=== PATIENT | female | born 1950 | race Caucasian/White ===

== ENCOUNTER 2017-11-01 05:02 | Observation (INO) | payer MEDICARE, OTHER ==
[~2017-11-01] VITALS: Ht 163.8 cm; Wt 109.3 kg
[2017-11-01] VITALS (12 sets, daily range): BP systolic 142–164; BP diastolic 68–106
[~2017-11-01 05:02] MED LIST: AMOX-559 PO; APIX5TAB PO; ARNICA MONTANA PO; ARNICA PO; ASPI-1471 PO; ATOR40TA69 PO; CETI-176 PO; CHOL200074 PO; CIPR-214 PO; DOXY-1 PO; FAMO20TA28 PO; FERR240T23 PO; FLUC150T40 PO; FLUC200T56 PO; FOLI-68 PO; HYDR-4308 PO; LEVO250T41 PO; LOSA100T67 PO; LOSA25TA50 PO; METH2.5T43 PO; METO25TA93 PO; MULT-1176 PO; MULT1TAB67 PO; SPIR25TA78 PO
[2017-11-01] MEDS ORDERED: FAMOTIDINE 20 MG TAB PO ONE (09:45)
[2017-11-01] MEDS ORDERED: LIDOCAINE/SOD BICARB 8.4% SYR ID ONE (09:45)
[2017-11-01] MEDS ORDERED: ceFAZolin(*) 2GM/D5W 50ML 50 ML IVPB ONE (09:45)
[2017-11-01] MEDS ORDERED: NORMOSOL R SOLN(*) 1000 ML BAG 1,000 ML IV PRN (09:45)
[2017-11-01] MEDS ORDERED: MIDAZOLAM 2 MG/2 ML VIAL IVP PRN (09:45)
--- NOTE | 2017-11-01 11:25 | RADIOLOGY IMAGING REPORT ---
FACILITY: [facility] PATIENT NAME: Rebeka Stevenson : 1950 MR: [id number] V: [id number] EXAM DATE: ORDERING PHYSICIAN: ALE HUSTON TECHNOLOGIST: Location[place] [facility] [place] Patient: Rebeka Stevenson : 1950 Visit/Account:[id number] Date of Sevice: 10/30/2017 Exam type: KUB SINGLE VIEW ABDOMEN History: PRE OP ORDER Comparison: October 10, 2017. Findings: There are bilateral ureteral stents in place. No definite calcifications identified over the renal s hadows or along the course of the stents. The superior border of the right renal shadow are not incl uded on the image. Bowel gas pattern is nonspecific. IMPRESSION: 1. Bilateral ureteral stents. No definite calcifications project over the renal shadows although the renal shadows are predominatel y obscured by bowel gas Report Dictated By: Mia Navarrete MD at 11/01/2017 11:13 AM Report E-Signed By: Mia Navarrete MD at 11/01/2017 11:14 AM WSN:[email or web address]
--- NOTE | 2017-11-01 11:26 | RADIOLOGY IMAGING REPORT ---
FACILITY: [facility] - [place] PATIENT NAME: Rebeka Stevenson : 1950 MR: [id number] V: [id number] EXAM DATE: ORDERING PHYSICIAN: ALE HUSTON TECHNOLOGIST: Location: [facility] - [place] Patient: Rebeka Stevenson : 1950 Visit/Account:[id number] Date of Sevice: 10/30/2017 Exam type: TOMOGRAPHY History: Kidney stones Comparison: October 10, 2017. Findings: Numerous calcifications project over the mid and inferior aspect of the right renal shadow. Calcific ations actually appears slightly more prominent when compared to the prior study. No calcifications seen over the left renal shadow. There are bilateral ureteral stents IMPRESSION: Multiple Calcifications project over the mid and inferior pole of the right renal shadow. These cons ultations appears more prominent when compared to the prior study Bilateral ureteral stents Report Dictated By: Mia Navarrete MD at 11/01/2017 11:14 AM Report E-Signed By: Mia Navarrete MD at 11/01/2017 11:16 AM WSN:[email or web address]
[2017-11-01] MEDS ORDERED: IOPAMIDOL-200 50 ML VIAL IS ONE ×2 (12:16→12:36)
[2017-11-01] MEDS ORDERED: DEXAMETHASONE SOD PHOS 10MG/ML ONE (12:17)
[2017-11-01] MEDS ORDERED: PROPOFOL EMUL(*) 10MG/ML 20 ML 20 ML ONE ×2 (12:17→13:00)
[2017-11-01] MEDS ORDERED: LIDOCAINE MPF 1% 5 ML VIAL ONE (12:17)
[2017-11-01] MEDS ORDERED: ONDANSETRON 4 MG/2 ML VIAL ONE (12:17)
[2017-11-01] MEDS ORDERED: fentaNYL CITR 100 MCG/2 ML AMP ONE (12:44)
--- NOTE | 2017-11-01 13:49 | RADIOLOGY IMAGING REPORT ---
FACILITY: [facility] - [place], [place] PATIENT NAME: Rebeka Stevenson : 1950 MR: [id number] V: [id number] EXAM DATE: ORDERING PHYSICIAN: ALE HUSTON TECHNOLOGIST: Location: [facility] - [place] Patient: Rebeka Stevenson : 1950 Visit/Account:[id number] Date of Sevice: 11/01/2017 Exam type: C-ARM FLUORO 1 HR History: HEMATURIA Comparison: September 24, 2017. Findings: There are bilateral double pigtail ureteral stents that appear to been repositioned when compared the prior study. Bowel gas pattern is nonspecific. Two intraoperative spot views of the abdomen pelvis were submitted. The fluoroscopy time was not documented. IMPRESSION: 1. As above Report Dictated By: Mia Navarrete MD at 11/01/2017 1:41 PM Report E-Signed By: Mia Navarrete MD at 11/01/2017 1:43 PM WSN:[email or web address]
[2017-11-01] MEDS ORDERED: ZOLPIDEM TARTRATE 5 MG TAB PO PRN (15:40)
[2017-11-01] MEDS ORDERED: LR(*) 1000 ML BAG 1,000 ML IV PRN (15:40)
[2017-11-01] MEDS ORDERED: NALOXONE HCL 0.4 MG/ML VIAL IVP PRN (15:40)
[2017-11-01] MEDS ORDERED: FLUSH 10 ML SYR IVP PRN (15:40)
[2017-11-01] MEDS ORDERED: HYDROmorphone PCA 6 MG/30 ML IV PRN (15:40)
[2017-11-01] MEDS ORDERED: ONDANSETRON 4 MG/2 ML VIAL IVP PRN (15:40)
[2017-11-01] MEDS: FAMOTIDINE 20 MG TAB PO SCH (20:17)
[2017-11-01] MEDS: DOCUSATE SODIUM 100 MG CAP PO SCH (20:17)
[2017-11-02] MEDS: GENTAMICIN/NS 80 MG/100 ML PB 100 ML IVPB SCH ×2 (01:13→12:25)
[2017-11-02 03:01] VITALS: BP 125/61
[2017-11-02 07:56] VITALS: BP 127/62
[2017-11-02 08:41] VITALS: Ht 163.8 cm; Wt 109.3 kg
[2017-11-02] MEDS: FAMOTIDINE 20 MG TAB PO SCH (09:20)
[2017-11-02] MEDS: DOCUSATE SODIUM 100 MG CAP PO SCH (09:20)
[2017-11-02 11:01] VITALS: BP 121/58
[2017-11-02] MEDS ORDERED: CIPR-344 PO (12:52)
--- NOTE | 2017-11-02 15:05 | OPERATIVE REPORT 1 ---
DATE OF EVENT: November 01, 2017 SURGEON: Gonzalo Henry MD ANESTHESIOLOGIST: Yani Sánchez MD ANESTHESIA: General. PREOPERATIVE DIAGNOSES 1. Bilateral renal lithiasis. 2. Possible bilateral ureteral steinstrasse. POSTOPERATIVE DIAGNOSES 1. Bilateral renal lithiasis. 2. Bilateral ureteral stent steinstrasse. PROCEDURES PERFORMED 1. Cystourethroscopy. 2. Bilateral ureteral stent removal. 3. Extraction of multiple calculi from the bladder, vesicolitholapaxy. 4. Right ureteral renoscopy and removal of stones 5. Left ureteral renoscopy and removal of stones 6. Right extracorporeal shock wave lithotripsy of one stone. 7. Left extracorporeal shock wave lithotripsy of two calculi. 8. Bilateral external stent removal. 9. Replacement of indwelling right ureteral stent. DESCRIPTION OF PROCEDURE Under general anesthetic, the patient was prepped and draped in the extended lithotomy position. The 21 panendoscope was admitted through the urethra into the bladder. Urine was obtained for culture and sensitivity. The stents were removed. Three to four calculi were treated with vesicolitholapaxy from the bladder after stent removal. Right ureterorenoscopy showed a fairly large right steinstrasse measuring approximately 2-1/2 inches. The calculi were extracted. The left ureterorenoscopy was performed, and there was a small steinstrasse of possibly 3/4 of an inch on the left that was extracted. Ascending and descending ureteroscopy revealed no other calculi. The external stents were placed 6 portuguese whistle-tip. They were secured to a Brasher drainage system, and contrast was attached. The patient was transferred to the stone treatment unit. The patient was positioned for right extracorporeal shock wave lithotripsy. Fluoroscopy failed to definitely show any calculi in the kidney. Contrast was introduced, and there was a large calculus that filled the renal pelvis almost completely and the upper pole collecting system. The stone was treated as one stone. A total of 3500 shocks were administered to the stone, and the stone appeared to satisfactorily disintegrate as evidenced by contrast media spreading through the disintegrated calculi at the conclusion of the procedure. The patient was repositioned for left extracorporeal shock wave lithotripsy. Three calculi were localized in the upper collecting system and were treated with a total of 1500 shocks utilizing contrast media again. The calculi in the inferior pole area were treated again with a total of 1500 shocks, all progressing from low to high kV fairly rapidly. The external stents were removed at the conclusion of the procedure. The patient was reprepped and draped in the frogleg position. The 21 panendoscope was admitted through the urethra into the bladder. The access catheter was placed up the right collecting system. The guidewire was placed. X-ray confirmed satisfactory positioning. The 6-Ugandan x 26 cm Percuflex Plus passed up the left collecting without any difficulty. X-ray confirmed a full curl in the kidney and the bladder. The bladder was irrigated free of blood, and urine was drained as fluids were drained. The patient tolerated the procedure satisfactorily and returned to the recovery room in satisfactory condition. This is a 67-year-old white female in followup for bilateral staghorn calculi. She has had two previous treatments. The plain films showed probable residual lithiasis in the right kidney, renal pelvis area. I could not definitely say I could see any on the left. Options were discussed as to evaluation and possible therapy. I explained possible ureteral steinstrasses and need for treatment and extraction as well as possible repeat extracorporeal shock wave lithotripsies. She was evaluated and treated. See operative note for details. The patient will be ready for discharge home in the a.m. if all is going well. She is to force fluids, 12 glasses of water per day. Activities are as tolerated. She is to percuss both kidneys frequently to facilitate passage of stone particles and will continue the Cipro, Pepcid, and Vicodin therapy as needed in addition to her usual medications. MTDD
== END 2017-11-02 12:39 | disposition home or self-care (01) ==
LOC: OR 05:02 → MED 16:08
DX: N20.0 Calculus of kidney (principal)
CPT/HCPCS: 50590; 52315; 74000; 76000; 76100; 87077; 87088; 87186; A9270; G0378; J1100; J1170; J1580; J2001; J2405; J2704; J3010; J7120; Q9966; J0690

== ENCOUNTER → 2017-11-20 | Outpatient (CLI) | payer MEDICARE, OTHER ==
[2017-11-02 08:41] VITALS: BMI 40.7
[~2017-11-20] MED LIST changes: +CIPR-344 PO
--- NOTE | 2017-11-20 12:55 | RADIOLOGY IMAGING REPORT ---
FACILITY: [facility] - [place] PATIENT NAME: Rebeka Stevenson : 1950 MR: [id number] V: [id number] EXAM DATE: ORDERING PHYSICIAN: ALE HUSTON TECHNOLOGIST: Location: [facility] - [place] Patient: Rebeka Stevenson : 1950 Visit/Account:[id number] Date of Sevice: 11/20/2017 Tomography: HISTORY: Nephroureteral lithiasis. COMPARISON: 09/01/2017 FINDINGS: 3 tomographic images are archived to PACS. No definite calcifications are seen projecting over the kidneys. Right nephroureteral stent is in place. Since the prior study, left nephrouretera l stent has been removed. IMPRESSION: No definite renal calculi seen on tomographic images. Report Dictated By: Hilda Flanagan MD at 11/20/2017 12:34 PM Report E-Signed By: Hilda Flanagan MD at 11/20/2017 12:51 PM WSN:[email or web address]
--- NOTE | 2017-11-20 12:57 | RADIOLOGY IMAGING REPORT ---
FACILITY: [facility] PATIENT NAME: Rebeka Stevenson : 1950 MR: [id number] V: [id number] EXAM DATE: ORDERING PHYSICIAN: ALE HUSTON TECHNOLOGIST: Location: [facility] [place] Patient: Rebeka Stevenson : 1950 Visit/Account:[id number] Date of Sevice: 11/20/2017 Abdomen single view: HISTORY: Nephroureteral lithiasis. COMPARISON: 11/01/2017 FINDINGS: Since prior study, left nephroureteral stent has been removed, right remains in place. No definite renal calculi are seen. No ureteral calculi are visualized. Rounded calcification in the l eft side of pelvis is outside the ureter and likely phleboliths. Bowel gas pattern is nonspecific. IMPRESSION: 1. No plain radiographic evidence of renal or ureteral calculi. 2. Interval removal of a left nephroureteral stent, right remains in place. Report Dictated By: Hilda Flanagan MD at 11/20/2017 12:51 PM Report E-Signed By: Hilda Flanagan MD at 11/20/2017 12:52 PM WSN:[email or web address]
== END ==
LOC: RAD 10:05
DX: N28.89 Other specified disorders of kidney and ureter (principal)
CPT/HCPCS: 74018; 76100

== ENCOUNTER → 2017-11-21 | Outpatient (CLI) | payer MEDICARE, OTHER ==
[2017-11-02 08:41] VITALS: BMI 40.7
== END ==
LOC: SPU 07:44
DX: N30.21 Other chronic cystitis with hematuria (principal)
CPT/HCPCS: 81001; 87088

== ENCOUNTER → 2017-11-21 | Outpatient (CLI) | payer MEDICARE, OTHER ==
[2017-11-02 08:41] VITALS: BMI 40.7
--- NOTE | 2017-11-21 11:40 | RADIOLOGY IMAGING REPORT ---
FACILITY: [facility] - [place] PATIENT NAME: Rebeka Stevenson : 1950 MR: [id number] V: [id number] EXAM DATE: ORDERING PHYSICIAN: ALE HUSTON TECHNOLOGIST: [place] [facility] [place] Patient: Rebeka Stevenson : 1950 Visit/Account:[id number] Date of Sevice: 11/21/2017 ABDOMEN/PELVIS W/O CONTRAST HISTORY: Nephro ureterolithiasis TECHNIQUE: Axial images acquired through the abdomen/pelvis. Coronal and sagittal reformatting also performed. No IV contrast administered. Dose Lowering Technique One of the following dose optimization techniques was utilized in the performance of this exam: Autom ated exposure control; adjustment of the mA and/or kV according to the patient's size; or use of an i terative reconstruction technique. Specific details can be referenced in the facility's radiology C T exam operational policy. COMPARISON: August 28, 2017 FINDINGS: Visualized lung bases: Small amount linear scarring in the left lower lobe and inferior right middle lobe Hepatobiliary: Hepatic cysts remain unchanged Spleen: Negative. Adrenals: Negative. Pancreas: Negative. Kidneys ureters and bladder: There Is a right ureteral stent in place. There is very mild fullness o f the right renal pelvis there are several calcifications remaining in the right renal collecting sys tem is a 2 mm calcification in the medial inferior pole and partial staghorn calculus in the lower po le though has overall decreased in size when compared to the prior study. No definite calculi seen a long the course of the right ureteral stent there has been a marked reduction in the size and number of calculi in the left renal collecting system. At least three calcifications remain in the lower po le of the left kidney ranging in size from 1 mm to 6 mm. The bladder is partially decompressed there fore not ideally evaluated Genitalia: Uterus is not seen GI: Mild diverticulosis of the sigmoid colon although no CT evidence of acute diverticulitis. The a ppendix appears mildly prominent at 8 mm although no surrounding inflammatory change identified in th e right lower quadrant. . Small hiatal hernia Vessels/spaces/nodes: Multiple shotty retroperitoneal lymph nodes again seen similar to the prior ex amination Bones/soft tissues: Spondylotic changes of the thoracolumbar spine. Additional findings: None pertinent. IMPRESSION: There is been a marked reduction of the number of nonobstructing calculi seen in both renal collectin g systems. Is a right ureteral stent in place with no definite calculi seen along the course of the stent. Ther e is very mild fullness of the right renal pelvis. Mild linear scarring in the lung bases Hepatic cysts unchanged Mild diverticulosis of the sigmoid colon although no CT evidence of acute diverticulitis Small hiatal hernia The appendix appears mildly prominent at 8 mm in diameter although no surrounding inflammatory change s identified in the right lower quadrant Report Dictated By: Mia Navarrete MD at 11/21/2017 11:25 AM Report E-Signed By: Mia Navarrete MD at 11/21/2017 11:35 AM JOSEN:[email or web address]
== END ==
LOC: CT 09:35
DX: N20.2 Calculus of kidney with calculus of ureter (principal); R91.8 Other nonspecific abnormal finding of lung field; K76.89 Other specified diseases of liver

== ENCOUNTER 2017-12-10 00:26 | Day surgery (SDC) | payer MEDICARE, OTHER ==
[2017-11-02 08:41] VITALS: Ht 163.8 cm; Wt 109.3 kg
[~2017-12-10] VITALS: Ht 163.8 cm; Wt 109.3 kg
[~2017-12-10 00:26] MED LIST changes: +FOLI0.4T56 PO
[2017-12-10] MEDS ORDERED: LIDOCAINE 2% IV 100 MG/5ML SYR ONE (08:02)
[2017-12-10] MEDS ORDERED: fentaNYL CITR 100 MCG/2 ML AMP ONE (08:02)
[2017-12-10] MEDS ORDERED: PROPOFOL EMUL(*) 10MG/ML 20 ML 0 ML ONE (08:03)
[2017-12-10] MEDS ORDERED: ONDANSETRON 4 MG/2 ML VIAL ONE (08:23)
[2017-12-10 08:33] LABS: INR 0.99
[2017-12-10] MEDS ORDERED: NORMOSOL R SOLN(*) 1000 ML BAG 1,000 ML IV PRN (08:50)
[2017-12-10] MEDS ORDERED: ceFAZolin(*) 2GM/D5W 50ML 50 ML IVPB ONE (08:50)
[2017-12-10] MEDS ORDERED: FAMOTIDINE 20 MG TAB PO ONE (08:50)
[2017-12-10] MEDS ORDERED: LIDOCAINE/SOD BICARB 8.4% SYR ID ONE (08:50)
[2017-12-10] MEDS ORDERED: MIDAZOLAM 2 MG/2 ML VIAL IVP ONE (08:50)
== END 2017-12-10 18:00 | disposition home or self-care (01) ==
LOC: OR 00:26
DX: Z02.9 Encounter for administrative examinations, unspecified (principal); Z86.718 Personal history of other venous thrombosis and embolism; Z79.01 Long term (current) use of anticoagulants
CPT/HCPCS: 36415; 85610; J2001; J2405; J2704; J3010

== ENCOUNTER 2017-12-13 00:29 | Observation (INO) | payer MEDICARE, OTHER ==
[~2017-12-13] VITALS: Ht 162.6 cm; Wt 107.0 kg
[2017-12-13] VITALS (18 sets, daily range): BP systolic 118–176; BP diastolic 60–108
[2017-12-13] MEDS ORDERED: LIDOCAINE/SOD BICARB 8.4% SYR ID ONE (10:00)
[2017-12-13] MEDS ORDERED: ceFAZolin(*) 2GM/D5W 50ML 50 ML IVPB ONE (10:00)
[2017-12-13] MEDS ORDERED: FAMOTIDINE 20 MG TAB PO ONE (10:00)
[2017-12-13] MEDS ORDERED: NORMOSOL R SOLN(*) 1000 ML BAG 1,000 ML IV PRN (10:00)
[2017-12-13] MEDS ORDERED: MIDAZOLAM 2 MG/2 ML VIAL IVP ONE (10:00)
[2017-12-13] MEDS ORDERED: fentaNYL CITR 100 MCG/2 ML AMP ONE ×2 (10:07→12:00)
[2017-12-13] MEDS ORDERED: LIDOCAINE MPF 1% 5 ML VIAL ONE ×2 (10:08→10:35)
[2017-12-13] MEDS ORDERED: ONDANSETRON 4 MG/2 ML VIAL ONE (10:08)
[2017-12-13] MEDS ORDERED: PROPOFOL EMUL(*) 10MG/ML 20 ML 20 ML ONE ×2 (10:08→11:08)
[2017-12-13] MEDS ORDERED: DEXAMETHASONE SOD PHOS 10MG/ML ONE (10:08)
--- NOTE | 2017-12-13 11:18 | RADIOLOGY IMAGING REPORT ---
[place] [facility] [place]: Rebeka Stevenson : 1950 MR: [id number] V: [id number] EXAM DATE: ORDERING PHYSICIAN: ALE HUSTON TECHNOLOGIST: Location: [facility] - [place] Patient: Rebeka Stevenson : 1950 Visit/Account:[id number] Date of Sevice: 12/13/2017 Exam type: TOMOGRAPHY History: Bilateral kidney stones Comparison: CT abdomen pelvis November 21, 2016. Findings: Right ureteral stent again seen is a 3 mm calcification projects over the lower pole of the right kid sabrina. No definite calcination seen along the course of the stent. No calcifications identified proje cting over the left renal shadow IMPRESSION: 1. Right ureteral stent The 3 mm calcination projects over the lower pole the right kidney Report Dictated By: Mia Navarrete MD at 12/13/2017 11:12 AM Report E-Signed By: Mia Navarrete MD at 12/13/2017 11:14 AM WSN:[email or web address]
--- NOTE | 2017-12-13 11:20 | RADIOLOGY IMAGING REPORT ---
FACILITY: [facility] PATIENT NAME: Rebeka Stevenson : 1950 MR: [id number] V: [id number] EXAM DATE: ORDERING PHYSICIAN: ALE HUSTON TECHNOLOGIST: Location: [facility] Patient: Rebeka Stevenson : 1950 Visit/Account:[id number] Date of Sevice: 12/13/2017 Exam type: KUB SINGLE VIEW ABDOMEN History: preop order Comparison: CT abdomen and pelvis November 21, 2017. Findings: Is a right ureteral stent in place. Calcination projecting over the lower pole the right kidney was better seen on today's nephrotomograms. No definite calcification seen along the course of the right stent. Suggestion of a small 3 mm calcination projecting over the lower pole the left kidney not we ll seen on today's nephrotomograms. Bowel gas pattern is nonspecific IMPRESSION: 1. Right ureteral stent Ossification projects over the lower pole the right kidney was better seen on today's nephrotomograms . Suggestion of a 3 mm calcification projecting over the lower pole of the left kidney not well apprec iated on today's nephrotomograms. Report Dictated By: Mia Navarrete MD at 12/13/2017 11:14 AM Report E-Signed By: Mia Navarrete MD at 12/13/2017 11:15 AM WSN:[email or web address]
[2017-12-13] MEDS ORDERED: IOPAMIDOL-200 50 ML VIAL IS ONE ×2 (11:34→12:26)
[2017-12-13] MEDS ORDERED: FLUSH 10 ML SYR IVP PRN (12:45)
[2017-12-13] MEDS ORDERED: ONDANSETRON 4 MG/2 ML VIAL IVP PRN (12:45)
[2017-12-13] MEDS ORDERED: LR(*) 1000 ML BAG 1,000 ML IV PRN (12:45)
[2017-12-13] MEDS ORDERED: ZOLPIDEM TARTRATE 5 MG TAB PO PRN (12:45)
[2017-12-13] MEDS ORDERED: NALOXONE HCL 0.4 MG/ML VIAL IVP PRN (12:50)
[2017-12-13] MEDS ORDERED: HYDROmorphone PCA 6 MG/30 ML IV PRN (12:50)
[2017-12-13] MEDS ORDERED: GENTAMICIN/NS 80 MG/100 ML PB 100 ML IVPB SCH (13:00)
[2017-12-13] MEDS ORDERED: DIPH-618 PO (14:24)
[2017-12-13] MEDS ORDERED: FLUCONAZOLE 150 MG TAB PO ONE (15:40)
--- NOTE | 2017-12-13 19:50 | OPERATIVE REPORT 1 ---
EVENT DATE: December 10, 2017 SURGEON: Gonzalo Henry MD ANESTHESIOLOGIST: Matthew Mclain MD ANESTHESIA: General anesthetic. PREOPERATIVE DIAGNOSES 1. Bilateral renal lithiases. 2. Right ureteral stent. POSTOPERATIVE DIAGNOSES 1. Bilateral renal lithiases. 2. Right ureteral stent. PROCEDURES PERFORMED 1. Cystourethroscopy. 2. Right ureteral stent removal. 3. Bilateral external stent placement. 4. Bilateral extracorporeal shock wave lithotripsy. One stone was treated in the right kidney, and one stone was treated in the left kidney. 5. Bilateral external stent removal. 6. Bilateral internal stent placement. DESCRIPTION OF PROCEDURE Under general anesthetic, the patient was prepped and draped in the extended lithotomy position. A 21 panendoscope was admitted through the urethra into the bladder. The right ureteral stent was visualized and removed. Her bladder was normal. There were a few small calculi at the right ureteral orifice. The external stents were placed up each collecting system. Contrast media was attached to the external stents. After localization, the visualized stone in the right kidney were treated with a total of 3000 shocks. Contrast showed appropriate treatment in the area of stone involvement. The left renal calculi were treated in a like fashion. Again, a total of 3000 shocks were administered progressive from low to high kV fairly slowly. Again, contrast showed treatment in the areas of stone involvement. The external stents were removed. The access catheter was placed and then the guide wire on the right. The 6-Norwegian x 26 cm Percuflex Plus was passed up the right collecting system. The left indwelling ureteral stent was placed in a like fashion. X-ray confirmed a full curl in the kidneys. Visualization showed full curls in the bladder cystoscopically. The bladder was irrigated free of blood. The patient tolerated the procedure satisfactorily and returned to the recovery room in satisfactory condition. This is a 67-year-old white female who was complaining about bilateral staghorn calculi. She has had multiple treatments. It is my clinical impression and hope that this will be her final shock wave lithotripsy. We plan followup in approximately two weeks for residual calculi. If no stones are visualized, then the stents will be removed. The patient will be discharged home on her usual medications in addition to the continued Cipro, Pepcid, Motrin, and Demerol tablet therapy. She is to percuss both kidneys frequently to facilitate passage of the stone particles. Stones collected will be sent for stone analysis. As previously alluded to, I believe, we have planned followup in approximately two weeks with KUB and possible CT IVP without contrast. MTDD
[2017-12-13] MEDS: FAMOTIDINE 20 MG TAB PO SCH (21:18)
[2017-12-13] MEDS: DOCUSATE SODIUM 100 MG CAP PO SCH (21:18)
[2017-12-13] MEDS: NYSTATIN 100,000 U/GM PWD 15GM TP SCH (21:19)
[2017-12-13] MEDS: GENTAMICIN/NS 80 MG/100 ML PB 100 ML IVPB SCH (21:19)
[2017-12-14 03:12] VITALS: BP 143/71
[2017-12-14] MEDS ORDERED: MEPE100T3 PO (07:06)
[2017-12-14] MEDS ORDERED: FAMO20TA28 PO (07:08)
[2017-12-14] MEDS ORDERED: CIPR-214 PO (07:08)
[2017-12-14 08:24] VITALS: Ht 162.6 cm; Wt 107.0 kg
[2017-12-14] MEDS: DOCUSATE SODIUM 100 MG CAP PO SCH (09:10)
[2017-12-14] MEDS: FAMOTIDINE 20 MG TAB PO SCH (09:10)
[2017-12-14 09:24] VITALS: BP 131/69
[2017-12-14] MEDS: NYSTATIN 100,000 U/GM PWD 15GM TP SCH (09:24)
[2017-12-14] MEDS: GENTAMICIN/NS 80 MG/100 ML PB 100 ML IVPB SCH (10:07)
== END 2017-12-14 07:09 | disposition home or self-care (01) ==
LOC: OR 00:29 → MED 14:10 → INTOOBSV 14:10
DX: N20.0 Calculus of kidney (principal)
CPT/HCPCS: 50590; 52332; 74018; 76100; 87077; 87088; 87186; A9270; C1758; C1769; C1894; C2617; G0378; J1100; J1580; J2001; J2405; J2704; J3010; J7120; Q9966; J0690

== ENCOUNTER → 2017-12-19 | Outpatient (CLI) | payer MEDICARE, OTHER ==
[2017-12-14 08:24] VITALS: BMI 40.5
[~2017-12-19] MED LIST changes: +DIPH-618 PO; +MEPE100T3 PO
[2017-12-19 10:43] LABS: PLATELET COUNT, AUTOMATED 323 K/uL (150-450)
== END ==
LOC: LAB 10:02
PROVIDERS: ATTEND Internal Medicine Nephrology
DX: N18.3 Chronic kidney disease, stage 3 (moderate) (principal); R80.1 Persistent proteinuria, unspecified; N20.0 Calculus of kidney; R31.0 Gross hematuria
CPT/HCPCS: 82040; 82310; 82374; 82435; 82565; 82947; 84100; 84132; 84295; 84520; 84550; 85025

== ENCOUNTER → 2018-01-01 | Outpatient (CLI) | payer MEDICARE, OTHER ==
[2017-12-14 08:24] VITALS: BMI 40.5
--- NOTE | 2018-01-01 09:18 | RADIOLOGY IMAGING REPORT ---
FACILITY: [facility] [place]IENT NAME: Rebeka Stevenson : 1950 MR: [id number] V: [id number] EXAM DATE: ORDERING PHYSICIAN: ALE HUSTON TECHNOLOGIST: Location: [facility] Patient: Rebeka Stevenson : 1950 Visit/Account:[id number] Date of Sevice: 01/01/2018 KUB SINGLE VIEW ABDOMEN HISTORY: Nephro ureterolithiasis KUB. Comparison made to a previous KUB from 12/13/2017 FINDINGS: Bilateral ureteral double-J stents in place. The left ureteral stent is new when compared to previous study. There appears to be 3 mm stone lower pole right kidney. Nonspecific bowel gas pattern. IMPRESSION: 1. Bilateral ureteral stents in place. Apparent 3 mm stone lower pole of the right kidney Report Dictated By: Blayne De La Vega MD at 01/01/2018 9:12 AM Report E-Signed By: Blayne De La Vega MD at 01/01/2018 9:14 AM WSN:[email or web address]
--- NOTE | 2018-01-01 10:25 | RADIOLOGY IMAGING REPORT ---
FACILITY: [facility] PATIENT NAME: Rebeka Stevenson : 1950 MR: [id number] V: [id number] EXAM DATE: ORDERING PHYSICIAN: ALE HUSTON TECHNOLOGIST: Location: [facility] Patient: Rebeka Stevenson : 1950 Visit/Account:[id number] Date of Sevice: 01/01/2018 Exam type: TOMOGRAPHY History: Nephroureteral lithiasis Comparison: KUB performed today. Findings: Bilateral ureteral stents are again seen is a 3 mm calcification noted projecting over the lower pole the right kidney was better seen on today's KUB. IMPRESSION: 1. Bilateral ureteral stents 3 mm calcification projecting over the lower pole the right kidney was better seen on today's KUB Report Dictated By: Mia Navarrete MD at 01/01/2018 10:20 AM Report E-Signed By: Mia Navarrete MD at 01/01/2018 10:21 AM WSN:[email or web address]
== END ==
LOC: RAD 02:44
DX: N20.0 Calculus of kidney (principal); Z96.0 Presence of urogenital implants
CPT/HCPCS: 74018

== ENCOUNTER 2018-01-10 03:11 | Observation (INO) | payer MEDICARE, OTHER ==
[~2018-01-10] VITALS: Ht 162.6 cm; Wt 105.2 kg
[2018-01-10] MEDS ORDERED: LIDOCAINE/SOD BICARB 8.4% SYR ONE (05:40)
[2018-01-10 06:12] VITALS: BP 139/69
--- NOTE | 2018-01-10 07:14 | RADIOLOGY IMAGING REPORT ---
FACILITY: [facility] [place] PATIENT NAME: Rebeka Stevenson : 1950 MR: [id number] V: [id number] EXAM DATE: ORDERING PHYSICIAN: ALE HUSTON TECHNOLOGIST: Location: [facility] [place] Patient: Rebeka Stevenson : 1950 Visit/Account:[id number] Date of Sevice: 01/10/2018 EXAMINATION: Abdominal tomography and KUB 4 views HISTORY: Kidney stones. COMPARISON: 01/01/2018. FINDINGS: AP supine KUB of the abdomen and 3D tomographic images of the upper abdomen are obtained. Bilateral ureteral stents are unchanged in position. The right renal fossa is partly obscured by stoo l content, but there is a 3 mm calcification overlying the inferior renal pole, similar to prior exam . No definite left renal calcifications or ureteral calcifications on either side. Small left phlebol ith in the pelvis. Bony structures are intact. Moderate amount of stool in the right side of the colon. No distended bow el loops. IMPRESSION: 1. Bilateral ureteral stents are unchanged. 2. 3 mm right inferior renal stone, unchanged. Report Dictated By: Tran Jones MD at 01/10/2018 7:06 AM Report E-Signed By: Tran Jones MD at 01/10/2018 7:10 AM WSN:[email or web address]
[2018-01-10] MEDS ORDERED: fentaNYL CITR 100 MCG/2 ML AMP ONE (07:28)
[2018-01-10] MEDS ORDERED: DEXAMETHASONE SOD PHOS 10MG/ML ONE (07:29)
[2018-01-10] MEDS ORDERED: PROPOFOL EMUL(*) 10MG/ML 20 ML 20 ML ONE (07:29)
[2018-01-10] MEDS ORDERED: PROPOFOL EMUL(*) 10MG/ML 20 ML 0 ML ONE (07:29)
[2018-01-10] MEDS ORDERED: LIDOCAINE MPF 1% 5 ML VIAL ONE (07:29)
[2018-01-10] MEDS ORDERED: ONDANSETRON 4 MG/2 ML VIAL ONE (07:29)
[2018-01-10] MEDS ORDERED: IOPAMIDOL-200 50 ML VIAL IS ONE ×2 (07:44→08:58)
[2018-01-10] MEDS ORDERED: ePHEDrine 25 MG/5 ML DISP.SYR IVP ONE ×2 (08:02→08:40)
[2018-01-10] MEDS ORDERED: MIDAZOLAM 2 MG/2 ML VIAL IVP PRN (09:55)
[2018-01-10] MEDS ORDERED: NORMOSOL R SOLN(*) 1000 ML BAG 1,000 ML IV PRN (09:55)
[2018-01-10] MEDS ORDERED: FAMOTIDINE 20 MG TAB PO ONE (09:55)
[2018-01-10] MEDS ORDERED: LEVOFLOXACIN/D5W*500 MG/100 ML 100 ML IVPB ONE (09:55)
[2018-01-10] MEDS ORDERED: GENTAMICIN(*) 80 MG/2 ML VIAL 160 MG in NS(*) 0.9% 100 ML BAG 100 ML IVPB ONE (09:55)
[2018-01-10] MEDS ORDERED: LR(*) 1000 ML BAG 1,000 ML IV PRN (10:30)
[2018-01-10] MEDS ORDERED: HYDROmorphone PCA 6 MG/30 ML IV PRN (10:30)
[2018-01-10] MEDS ORDERED: NALOXONE HCL 0.4 MG/ML VIAL IVP PRN (10:30)
[2018-01-10] MEDS ORDERED: ACETAMIN/CODEINE #3 300-30 MG PO PRN (10:30)
[2018-01-10] MEDS ORDERED: ZOLPIDEM TARTRATE 5 MG TAB PO PRN (10:30)
[2018-01-10] MEDS ORDERED: FLUSH 10 ML SYR IVP PRN (10:30)
[2018-01-10] MEDS ORDERED: ONDANSETRON 4 MG/2 ML VIAL IVP PRN (10:30)
[2018-01-10 10:42] VITALS: BP 132/62
[2018-01-10] MEDS ORDERED: CETIRIZINE HCL 10 MG TAB PO PRN (12:25)
--- NOTE | 2018-01-10 12:53 | Hospitalist Consultation ---
History of Present Illness Requesting Physician Dr. Henry Reason for Consult Anticoagulation History of Present Illness She was admitted for Lithotripsy. It was reported the surgery went well and without complication. Patient has history of four DVT's in the past. Patient requires anticoagulation after surgery. History Problems: (1) Chronic kidney disease (CKD) stage G3b/A1, moderately decreased glomerular filtration rate (GFR) between 30-44 mL/min/1.73 square meter and albuminuria creatinine ratio less than 30 mg/g Status: Chronic (2) DVT of lower extremity, bilateral Onset Date: ~ 11/14/2016 Status: Chronic Home Meds Reported Medications Ciprofloxacin Hcl (CIPROFLOXACIN HCL) 500 Mg Tablet, 500 MG PO BID, #30 TAB 12/14/17 Diphenhydramine Hcl (DIPHENHYDRAMINE HCL) 25 Mg Tablet, 6.25-12.5 MG PO PRN Y for ITCHING, TAB 12/13/17 Ciprofloxacin Hcl (CIPRO) 500 Mg Tablet, 0.5 TAB PO BID 11/02/17 [Arnica Monty] No Conflict Check, 4 TAB PO Q4H Y for PAIN 10/30/17 Multivits,Ca,Minerals/Iron/Fa (WOMEN'S DAILY CAPLET) 1 Each Tablet, 1 EACH PO BID 09/03/17 Multivitamin With Minerals (HAIR, SKIN & NAILS) 1 Each Tablet, 1 EACH PO BID 09/03/17 Losartan Potassium (LOSARTAN POTASSIUM) 25 Mg Tablet, 12.5 MG PO QDAY 09/03/17 Cetirizine Hcl (ZYRTEC) 10 Mg Tablet, 1 TAB PO QDAY, TAB 04/30/17 Cholecalciferol (Vitamin D3) (VITAMIN D-3) Unknown Strength Capsule, 1 CAP PO DAILY, CAPSULE 11/29/16 Aspirin (ASPIR 81) 81 Mg Tablet.dr, 2 TAB PO BID, TAB 10/31/16 Discontinued Reported Medications Meperidine Hcl (DEMEROL) 100 Mg Tablet, 50 MG PO Q4-6H Y for PAIN, #20 12/14/17 Folic Acid (FOLIC ACID) 0.4 Mg Tablet, 0.4 MG PO QDAY 12/05/17 Allergies: Coded Allergies: Sulfa (Sulfonamide Antibiotics) (Verified Allergy, Severe, 05/31/17) cefazolin (Verified Allergy, Severe, REDDNESS AND FACIAL SWELLING, 01/08/18 ) bacitracin (Verified Allergy, Intermediate, itching, 11/01/17) acetaminophen (Verified Allergy, Unknown, 05/31/17) Patient History: Blood clots MOTHER (H/o pulmonary embolism), , Age:83 Sister (h/o blood clot in right leg) FH: diabetes mellitus Brother FH: lung cancer FATHER, , Age:77 Hx Smoking: No Smoking Status: Never Smoker Caffeine Intake: Soda Caffeine/Cups Per Day: 1 DAILY Hx Alcohol Use: No Hx Substance Use Disorder: No Social Drug Use: Never Review of Systems All Systems Reviewed/Normal: Yes Exam Vital Signs Vital Signs Date Time Temp Pulse Resp B/P (MAP) Pulse Ox O2 Delivery O2 Flow Rate FiO2 01/10/18 10:42 97.5 88 16 132/62 (85) 99 Nasal Cannula 2.0 General Appearance: Alert, Awake, No Acute Distress Cardiovascular: Regular Rate and Rhythm Respiratory: No Respiratory Distress, Clear to Auscultation Integumentary: Scaly / Dry Skin, Other (large scabs noted to skin) Psych: Alert & Oriented X3, Appropriate Mood & Affect Assessment and Plan Problems: (1) Chronic kidney disease (CKD) stage G3b/A1, moderately decreased glomerular filtration rate (GFR) between 30-44 mL/min/1.73 square meter and albuminuria creatinine ratio less than 30 mg/g Status: Chronic Assessment & Plan: Patient will continue chronic losartan for reduced kidney pressures. (2) History of DVT (deep vein thrombosis) Status: Chronic Assessment & Plan: Patient will require anticoagulation s/p lithotripsy. Patient will be started on Lovenox 30mg daily secondary to decreased GFR. Venous Thromboembolism VTE Risk Physician Assess for VTE Risk: Yes Patient's VTE Risk: High Antithrombotics Is Pt On Any Antithrombotics?: Yes DAVID TINSLEY Jan 10, 2018 12:53
--- NOTE | 2018-01-10 15:44 | OPERATIVE REPORT 1 ---
EVENT DATE: January 10, 2018 SURGEON: Gonzalo Henry MD ANESTHESIOLOGIST: Hadley Gallagher MD ANESTHESIA: General anesthetic. PREOPERATIVE DIAGNOSES 1. Bilateral staghorn calculi. 2. Status postoperative multiple extracorporeal shock wave lithotripsies. POSTOPERATIVE DIAGNOSES 1. Bilateral staghorn calculi. 2. Status postoperative multiple extracorporeal shock wave lithotripsies. PROCEDURES PERFORMED 1. Cystourethroscopy. 2. Bilateral internal stent removal. 3. Bilateral external stent placement. 4. Right extracorporeal shock wave lithotripsy for residual stones. 5. Left extracorporeal shock wave lithotripsy for one stone. 6. Bilateral external stent removal. DESCRIPTION OF PROCEDURE Under general anesthetic, the patient was prepped and draped in the extended lithotomy position. A 21 panendoscope was admitted through the urethra into the bladder. Internal stents were removed. No stones were visible in the bladder prior to stent removal as well as after the stent removal. The bladder appeared normal on inspection with no evidence of acute or chronic inflammation. Even the ureteral orifices were relatively benign in appearance. Bilateral external stents with a 5 whistle tip were passed up each collecting system without any difficulty. Utilizing contrast, the major four stones were treated in the right kidney with a total of 2500 shocks being administered. Most of the shock waves were administered to the inferior pole area where the x-rays showed probable residual lithiasis. The other calyces were treated to help ensure complete eradication of the stones. The patient was positioned for a left extracorporeal shock wave lithotripsy. The area where the stones were located in the previous lithotripsy was again treated. The x-ray showed incomplete filling of the inferior pole calyceal structures. After treatment, the contrast was filling the inferior pole portion of the collecting system. A total of 1000 shocks were administered to the area. At the conclusion of the procedure, the external stents were removed. The bladder was irrigated free of blood. The panendoscope was removed. The patient tolerated the procedure satisfactorily and returned to the recovery room in satisfactory condition. This is a 67-year-old white female complaining of bilateral staghorn calculi and a urinary tract infection. This initially started and initiated treatment in August 2017. She had large staghorn calculi bilaterally. With the concern for the infection diagnosed pretreatment, the patient initially received individual treatments to each kidney to hopefully prevent any serious flare-up of infection after treating stones. It is my clinical impression that her ureterolithiasis staghorn calculi are satisfactorily resolved. I will follow up in that regard. The patient will be discharged home on her normal Cipro, Pepcid, Motrin, and [place] therapy in addition to her usual medications. She has had multiple catheterized urines, which were felt to show no growth after Cipro therapy was initiated. The patient is to force fluids, 12 glasses of water per day or more. Activities are as tolerated. She is to strain all of her urine. She is sent home with strainers. She is to percuss both kidneys frequently to facilitate passage of stone particles. A copy of instructions were given to the patient. BLAYNED
[2018-01-10 17:02] VITALS: BP 132/62
[2018-01-10 19:20] VITALS: BP 126/57
[2018-01-10] MEDS ORDERED: GENTAMICIN/NS 80 MG/100 ML PB 100 ML IVPB SCH (20:00)
[2018-01-10] MEDS: LOSARTAN POTASSIUM 50 MG TAB PO SCH (20:59)
[2018-01-10] MEDS: FAMOTIDINE 20 MG TAB PO SCH (20:59)
[2018-01-10] MEDS: DOCUSATE SODIUM 100 MG CAP PO SCH (20:59)
[2018-01-10] MEDS: ASPIRIN 81 MG ENTERIC COATED PO SCH (21:00)
[2018-01-10 23:15] VITALS: BP 133/64
[2018-01-11 03:30] VITALS: BP 115/52
[2018-01-11] MEDS ORDERED: HYDR-4309 PO (06:59)
[2018-01-11] MEDS ORDERED: CIPR-344 PO (07:00)
[2018-01-11] MEDS ORDERED: FAMO20TA28 PO (07:01)
--- NOTE | 2018-01-11 07:45 | Hospitalist Progress Note ---
Subjective Progress Notes Subjective Patient denies any problems today. She states that she is ready to go home. Patient Complains of: Cardiovascular: No: Chest Pain Respiratory: No: Shortness of Breath Physical Exam Vital Signs Date Time Temp Pulse Resp B/P (MAP) Pulse Ox O2 Delivery O2 Flow Rate FiO2 01/11/18 05:02 94 01/11/18 03:30 98.0 82 19 115/52 (73) Room Air 01/10/18 15:40 2.0 General Appearance: Alert, Awake, No Acute Distress, Afebrile Cardiovascular: Regular Rate and Rhythm Respiratory: No Respiratory Distress, Clear to Auscultation Extremities: No Edema Psych: Alert & Oriented X3, Appropriate Mood & Affect Assessment and Plan Problems: (1) Chronic kidney disease (CKD) stage G3b/A1, moderately decreased glomerular filtration rate (GFR) between 30-44 mL/min/1.73 square meter and albuminuria creatinine ratio less than 30 mg/g Status: Chronic Assessment & Plan: Patient will continue chronic losartan for reduced kidney pressures. (2) History of DVT (deep vein thrombosis) Status: Chronic Assessment & Plan: Patient will require anticoagulation s/p lithotripsy. Patient will continue Aspirin currently. She has appointment Dr Adames to restart Eliquis. Copies to: JOSE QUIROS MD; NITA AKINS MD; DELANO ADAMES MD Exam Sepsis Risk: No Definite Risk DAVID TINSLEY Jan 11, 2018 07:45
[2018-01-11 08:41] VITALS: BP 119/68
[2018-01-11] MEDS: ASPIRIN 81 MG ENTERIC COATED PO SCH (08:58)
[2018-01-11] MEDS: FAMOTIDINE 20 MG TAB PO SCH (08:58)
[2018-01-11] MEDS: DOCUSATE SODIUM 100 MG CAP PO SCH (08:58)
[2018-01-11] MEDS: LOSARTAN POTASSIUM 50 MG TAB PO SCH (09:00)
[2018-01-11] MEDS ORDERED: ENOXAPARIN 30 MG/0.3 ML SYR SC SCH (09:00)
[2018-01-11 09:26] VITALS: Ht 162.6 cm; Wt 105.2 kg
[2018-01-17] MEDS ORDERED: LIDOCAINE/SOD BICARB 8.4% SYR ID ONE (09:55)
== END 2018-01-11 06:49 | disposition home or self-care (01) ==
LOC: OR 03:11 → MED 10:30
DX: N20.0 Calculus of kidney (principal)
CPT/HCPCS: 50590; 74018; 76100; 87077; 87088; 87186; A9270; G0378; J1100; J1580; J1956; J2001; J2405; J2704; J3010; Q9966

== ENCOUNTER → 2018-01-29 | Outpatient (CLI) | payer MEDICARE, OTHER ==
[2018-01-11 09:26] VITALS: BMI 39.8
[~2018-01-29] MED LIST changes: +HYDR-4309 PO
--- NOTE | 2018-01-29 09:50 | RADIOLOGY IMAGING REPORT ---
FACILITY: [facility] PATIENT NAME: Rebeka Stevenson : 1950 MR: [id number] V: [id number] EXAM DATE: ORDERING PHYSICIAN: ALE HUSTON TECHNOLOGIST: Location: [facility] [place] Patient: Rebeka Stevenson : 1950 Visit/Account:[id number] Date of Sevice: 01/29/2018 Exam type: TOMOGRAPHY AND KUB W/CASSETTE, KUB SINGLE VIEW ABDOMEN History: Nephrolithiasis Comparison: 01/10/2018. Findings: Ureteral stents have been removed. The KUB portion study demonstrates a possible 3 mm stone overlyin g the right L3 transverse process which could represent a UPJ stone. The calcifications deep pelvis appear to represent phleboliths and are stable. Tomographic images demonstrate a possible subtle 2 to 3 mm nonobstructing stone lower pole right kidn ey. Stool is noted in the ascending colon. Patient is osteopenic. IMPRESSION: 1. Ureteral stents been removed. There is a possible 3 mm stone overlying the lower pole of the rig ht kidney and a possible 3 mm stone overlying the right L3 transverse process which could be in the r ight UPJ. Report Dictated By: José Alexander MD at 01/29/2018 9:39 AM Report E-Signed By: José Alexander MD at 01/29/2018 9:46 AM WSN:[email or web address]
--- NOTE | 2018-01-29 09:50 | RADIOLOGY IMAGING REPORT ---
FACILITY: [facility] PATIENT NAME: Rebeka Stevenson : 1950 MR: [id number] V: [id number] EXAM DATE: ORDERING PHYSICIAN: ALE HUSTON TECHNOLOGIST: Location: [facility] Patient: Rebeka Stevenson : 1950 Visit/Account:[id number] Date of Sevice: 01/29/2018 Exam type: TOMOGRAPHY AND KUB W/CASSETTE, KUB SINGLE VIEW ABDOMEN History: Nephrolithiasis Comparison: 01/10/2018. Findings: Ureteral stents have been removed. The KUB portion study demonstrates a possible 3 mm stone overlyin g the right L3 transverse process which could represent a UPJ stone. The calcifications deep pelvis appear to represent phleboliths and are stable. Tomographic images demonstrate a possible subtle 2 to 3 mm nonobstructing stone lower pole right kidn ey. Stool is noted in the ascending colon. Patient is osteopenic. IMPRESSION: 1. Ureteral stents been removed. There is a possible 3 mm stone overlying the lower pole of the rig ht kidney and a possible 3 mm stone overlying the right L3 transverse process which could be in the r ight UPJ. Report Dictated By: José Alexander MD at 01/29/2018 9:39 AM Report E-Signed By: José Alexander MD at 01/29/2018 9:46 AM WSN:[email or web address]
== END ==
LOC: RAD 08:54
DX: N20.9 Urinary calculus, unspecified (principal)
CPT/HCPCS: 74018

== ENCOUNTER → 2018-02-12 | Outpatient (CLI) | payer MEDICARE, OTHER ==
[2018-01-11 09:26] VITALS: BMI 39.8
== END ==
LOC: LAB 10:41
PROVIDERS: ATTEND Internal Medicine Nephrology
DX: N20.0 Calculus of kidney (principal)
CPT/HCPCS: 36415; 82040; 82310; 82330; 82340; 82374; 82435; 82507; 82565; 82947; 83945; 83970; 84100; 84132; 84295; 84520; 84560

== ENCOUNTER → 2018-03-04 | Outpatient (REF) | payer MEDICARE, OTHER ==
[2018-01-11 09:26] VITALS: BMI 39.8
== END ==
LOC: ZZSENDIN 11:12
PROVIDERS: ATTEND Internal Medicine Nephrology
DX: R39.89 Other symptoms and signs involving the genitourinary system (principal); R35.0 Frequency of micturition
CPT/HCPCS: 81001; 87088

== ENCOUNTER 2018-03-11 10:43 | Outpatient (RCR) | payer MEDICARE, OTHER ==
[2018-01-11 09:26] VITALS: Wt 103.0 kg
[2018-03-08 10:48] LABS: PLATELET COUNT, AUTOMATED 301 K/uL (150-450)
[2018-03-11 10:51] VITALS: BP 136/73
--- NOTE | 2018-03-12 17:59 | ONCOLOGY FOLLOW UP NOTE ---
EVENT DATE: March 11, 2018 CHIEF COMPLAINT/REASON FOR VISIT Ms. Stevenson is a pleasant 68-year-old female with recurrent DVT with multiple risk factors here for followup. HISTORY OF PRESENT ILLNESS Renae returns. She had severe bilateral DVT in late October 2016. She had had two other prior blood clots in her life, with the first one in the last 1960s as a young adult. She has no children and has never had hypercoagulable testing. She has some moderate renal insufficiency and is on Eliquis as a result. This has not worsened. She is tolerating Eliquis well with no bleeding issues. Since the last visit she had gangrene of the right toes and required amputation. She has known peripheral vascular disease. She continues to have a sedentary lifestyle overall. Her goal is to live to age 78. We again discussed consideration of hypercoagulable testing, but it would not impact her treatment recommendation, so we will hold this plan. No new issues. PAST MEDICAL HISTORY 1. DVT three times in the left leg, one time in the right, with the latest bilateral DVT October 2016. 2. Hypertension. 3. Renal insufficiency. 4. Obesity. 5. Peripheral vascular disease. 6. Eczema/possible plaque psoriasis with prior methotrexate treatment, 10 mg weekly. I do not feel that she required folic acid at that dose and that her peripheral vascular issues are the predominant reason for her leg wound. 7. Gangrene of the right foot. PAST SURGICAL HISTORY 1. Tonsillectomy. 2. Hysterectomy. 3. Left wrist surgery in 2004. 4. Debridement of the right toes for gangrene. SOCIAL HISTORY The patient is . Her in 2011. 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 FAMILY HISTORY Remarkable for blood clots in her younger sister and mother. Diabetes in family members as well. Lung cancer in her father. REVIEW OF SYSTEMS CONSTITUTIONAL: No fevers or chills. She has had an intentional weight loss over the past few years. HEENT: No headache or vision changes. SKIN: Dry skin. CARDIOVASCULAR: No chest pain, dyspnea on exertion currently. RESPIRATORY: No shortness of breath, cough or wheeze. ABDOMEN: No nausea or vomiting. GENITOURINARY: The patient had staghorn calculi in the kidneys that were treated with multiple lithotripsies. She feels that her mental acuity and breathing have improved since treatment of this. MUSCULOSKELETAL: Positive weakness. ENDOCRINE: No heat or cold intolerance. PSYCHIATRIC: No anxiety or depression. IMMUNOLOGIC: No issues with infection. HEMATOLOGIC/LYMPHATIC: No concerning lumps or bumps. No issues with bruising or bleeding while on Eliquis fortunately. The remainder of the 14-point review of systems otherwise negative. PHYSICAL EXAMINATION VITAL SIGNS: Blood pressure 136/73, pulse 98, respiratory rate 18, temperature 96.8 Fahrenheit, oxygen saturation 94% on room air. Weight 103 kg. Pain 0/10. Fatigue 0/10. GENERAL: Stable condition resting comfortably in the chair. HEENT: Normocephalic, atraumatic. ABDOMEN: Soft, nontender. SKIN: No concerning findings today. Full physical exam deferred today to amount of time spent in counseling and coordination of care. IMPRESSION/PLAN Ms. Stevenson is a pleasant 68-year-old female with the following: Recurrent deep vein thrombosis. These were unprovoked events and she has multiple risk factors including sedentary lifestyle, obesity, renal insufficiency. I do still have concern for hypercoagulable state given her sister and mother's history of blood clots. She has no children and the studies would not change the recommendation of indefinite anticoagulant for her. We again discussed that this is not a reversal agent, but I am hopeful that it will be developed in the future. We will need to watch her kidneys, and as long as they are stable at this level we can continue the Eliquis at the current doses. Would like to see her approximately annually given this issue. I answered all of her questions. Billing: Return visit level 3. Total time 20 minutes, counseling time 15. MTDD
[2018-03-20] MEDS ORDERED: APIX5TAB PO (10:28)
== END 2018-04-10 13:16 | disposition home or self-care (01) ==
LOC: ONC 10:43
PROVIDERS: ATTEND Internal Medicine
DX: I82.403 Acute embolism and thrombosis of unspecified deep veins of lower extremity, bilateral (principal); N28.9 Disorder of kidney and ureter, unspecified; Z79.01 Long term (current) use of anticoagulants; R53.1 Weakness
CPT/HCPCS: 36415; 82040; 82247; 82310; 82374; 82435; 82565; 82947; 84075; 84132; 84155; 84295; 84450; 84460; 84520; 85025; 99212

== ENCOUNTER → 2018-03-11 | Outpatient (CLI) | payer MEDICARE, OTHER ==
[2018-01-11 09:26] VITALS: BMI 39.8
[2018-03-11 12:17] LABS: PLATELET COUNT, AUTOMATED 334 K/uL (150-450)
== END ==
LOC: LAB 11:24
PROVIDERS: ATTEND Internal Medicine Nephrology
DX: N17.0 Acute kidney failure with tubular necrosis (principal); N18.3 Chronic kidney disease, stage 3 (moderate); N20.0 Calculus of kidney; R80.1 Persistent proteinuria, unspecified; R31.0 Gross hematuria
CPT/HCPCS: 36415; 81001; 82310; 82374; 82435; 82565; 82570; 82947; 84132; 84156; 84295; 84520; 85025

== ENCOUNTER → 2018-05-08 | Outpatient (CLI) | payer MEDICARE, OTHER ==
[2018-01-11 09:26] VITALS: BMI 39.8
== END ==
LOC: LAB 11:03
PROVIDERS: ATTEND Emergency Medicine
DX: I10 Essential (primary) hypertension (principal)
CPT/HCPCS: 36415; 82465; 83718; 84478

== ENCOUNTER → 2018-06-10 | Outpatient (CLI) | payer MEDICARE, OTHER ==
[2018-01-11 09:26] VITALS: BMI 39.8
[~2018-06-10] MED LIST changes: +ROS10 PO; +ROSU5TAB8 PO; -SPIR25TA78 PO; +SPIR25TA80 PO
== END ==
LOC: LAB 11:14
PROVIDERS: ATTEND Emergency Medicine
DX: E78.5 Hyperlipidemia, unspecified (principal)
CPT/HCPCS: 36415; 82274; 82465; 83718; 84478

== ENCOUNTER → 2018-09-09 | Outpatient (CLI) | payer MEDICARE, OTHER ==
[2018-01-11 09:26] VITALS: BMI 39.8
[~2018-09-09] MED LIST changes: +CLOB15OI16 TP; -HYDR-4308 PO; -HYDR-4309 PO; +HYDR-653 PO; +HYDR-654 PO; -LOSA100T67 PO; +LOSA100T69 PO; -LOSA25TA50 PO; +LOSA25TA52 PO
== END ==
LOC: LAB 14:00
PROVIDERS: ATTEND Internal Medicine Nephrology
DX: N18.3 Chronic kidney disease, stage 3 (moderate) (principal); N17.0 Acute kidney failure with tubular necrosis; R39.89 Other symptoms and signs involving the genitourinary system; R35.0 Frequency of micturition; N25.81 Secondary hyperparathyroidism of renal origin; R80.1 Persistent proteinuria, unspecified; R31.0 Gross hematuria; N20.0 Calculus of kidney
CPT/HCPCS: 36415; 81001; 82040; 82310; 82330; 82374; 82435; 82565; 82570; 82947; 83970; 84100; 84132; 84156; 84295; 84520; 87088

== ENCOUNTER → 2018-10-31 | Outpatient (CLI) | payer MEDICARE, OTHER ==
[2018-01-11 09:26] VITALS: BMI 39.8
[~2018-10-31] MED LIST changes: +FERR240T2 PO; -FERR240T23 PO; +FLU180SY11 IM; -LOSA100T69 PO; +LOSA100T75 PO; -LOSA25TA52 PO; +LOSA25TA57 PO
--- NOTE | 2018-10-31 11:12 | RADIOLOGY IMAGING REPORT ---
[place] [facility] [place]: Rebeka Stevenson : 1950 MR: [id number] V: [id number] EXAM DATE: ORDERING PHYSICIAN: JOSE QUIROS TECHNOLOGIST: [place] [facility] [place] Rebeka [place] : 1950 Visit/Account:[id number] Date of Sevice: 10/31/2018 DEXA Scan Clinical history: Postmenopausal. Comparison: None available. LUMBAR SPINE: The bone mineral density (BMD) measured from L1-L4 correlates with a Z-score -2.2 and a T-score of -2 .7 which is osteoporosis as defined by the World Health Organization. The corresponding risk of frac ture in the lumbar spine is 6-8 times increased compared with a young adult reference population. HIP: Bone mineral density (BMD) measured in the Left total hip region correlates with a Z-score -1.7 and a T-score of -2.4 which is osteopenia as defined by the World Health Organization. The corresponding risk of fracture in the hip is 4-6 times increased compared with a young adult reference population. T score left femoral neck -2.8 Bone mineral density (BMD) measured in the Femoral Neck region measures 0.654 g/cm2. Impression: 1. Lumbar spine: Osteoporosis. 2. Left Hip: Osteopenia. 3. Femoral Neck: Bone Mineral Density is 0.654 g/cm2 The next DEXA scan of this patient should include the following sites: L1-L4 and the left hip. FRAX? WHO Fracture Risk Assessment Tool link: <http://www.shef.ac.uk/FRAX/tool.jsp?locationValue=9> PLEASE NOTE: 1) The World Health Organization defines low BMD as follows: T-score Normal > -1 Osteopenia < -1 and > -2.5 Osteoporosis < -2.5 without fractures Established osteoporosis < -2.5 with fractures 2) In general, you may wish to consider: Diagnosis Treatment Follow-up DEXA Normal BMD Prevention 2-3 years Osteopenia Prevention/therapy 1-2 years Osteoporosis Therapy Yearly 3) Fracture risk estimated from the T-score is more accurate for vertebral fractures (often spontane ous) than for hip fractures. Report Dictated By: Mia Navarrete MD at 10/31/2018 11:06 AM Report E-Signed By: Mia Navarrete MD at 10/31/2018 11:08 AM WSN:[email or web address]
== END ==
LOC: RAD 01:21
PROVIDERS: ATTEND Emergency Medicine
DX: M81.0 Age-related osteoporosis without current pathological fracture (principal); Z78.0 Asymptomatic menopausal state; M85.80 Other specified disorders of bone density and structure, unspecified site
CPT/HCPCS: 77080

== ENCOUNTER 2019-02-24 09:53 | Outpatient (RCR) | payer MEDICARE, OTHER ==
[2018-01-11 09:26] VITALS: Wt 108.0 kg
[2019-02-17 09:21] VITALS: BP 180/94
[2019-02-17 09:43] LABS: PLATELET COUNT, AUTOMATED 307 K/uL (150-450)
[~2019-02-24 09:53] MED LIST changes: +ASCO1TAB5; -ROS10 PO; +ROSU10TA PO
[2019-02-24 10:09] VITALS: BP 161/79
--- NOTE | 2019-02-25 06:06 | ONCOLOGY FOLLOW UP NOTE ---
EVENT DATE: February 24, 2019 CHIEF COMPLAINT/REASON FOR VISIT Ms. Stevenson is a pleasant 69-year-old female with a past medical history of multiple DVTs, who continues on chronic anticoagulation. HISTORY OF PRESENT ILLNESS Luccy returns. Overall, she is feeling well. No signs or symptoms suggestive of blood clot in the last 12 months. She also has no bleeding concerns of any kind. Overall, she is tolerating therapy quite well. She had severe bilateral DVTs in late October 2016. She has also had two other blood clots in her life, with the first one in the last 1960s as a young adult. She has no children and has never had hypercoagulable testing. She is not interested in it. She has mild to moderate renal insufficiency and is on Eliquis as a result. She does have known peripheral vascular disease, and this has been a problem in the past, but not currently. We have previously discussed hypercoagulable testing multiple times, and it would not impact her treatment recommendations. She decided to hold on this, and this is very reasonable. PAST MEDICAL HISTORY 1. DVT three times in the left leg, one time in the right, with the latest bilateral DVT October 2016. 2. Hypertension. 3. Renal insufficiency. 4. Obesity. 5. Peripheral vascular disease. 6. Eczema/possible plaque psoriasis with prior methotrexate treatment, 10 mg weekly. I do not feel that she required folic acid at that dose and that her peripheral vascular issues are the predominant reason for her leg wound. 7. Gangrene of the right foot. PAST SURGICAL HISTORY 1. Tonsillectomy. 2. Hysterectomy. 3. Left wrist surgery in 2004. 4. Debridement of the right toes for gangrene. SOCIAL HISTORY The patient is . Her in 2011. 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 FAMILY HISTORY Remarkable for blood clots in her younger sister and mother. Diabetes in family members as well. Lung cancer in her father. REVIEW OF SYSTEMS CONSTITUTIONAL: No fevers or chills. HEENT: No headache or vision changes. CARDIOVASCULAR: No chest pain, dyspnea on exertion, or edema. RESPIRATORY: No shortness of breath, wheeze, or cough. ABDOMEN: No nausea, vomiting, or diarrhea. GENITOURINARY: She has a history of staghorn calculi with a history of multiple lithotripsies. She tries to avoid oxalates in her diet. MUSCULOSKELETAL: No weakness or joint pain. ENDOCRINE: No heat or cold intolerance. PSYCHIATRIC: No anxiety or depression. SKIN: No concerning findings. IMMUNOLOGIC: No history with frequent infections. HEMATOLOGIC/LYMPHATIC: No concerning lumps or bumps. No major issues with bruising or bleeding. The remainder of the 14-point review of systems is otherwise negative. PHYSICAL EXAMINATION VITAL SIGNS: Blood pressure 161/79, pulse 93, respiratory rate 18, temperature 97.1 Fahrenheit, oxygen saturation 90% on room air. Weight 108 kg. Pain 0/10. Fatigue 0/10. It is approximately a 10-pound weight gain since last year. GENERAL: Stable condition, resting comfortably in the chair. HEENT: Normocephalic, atraumatic. CARDIOVASCULAR: Regular rate and rhythm. LUNGS: Clear. ABDOMEN: Soft, nontender. Moderate obesity. Remainder of physical exam otherwise unremarkable. IMPRESSION/REPORT/PLAN Ms. Stevenson is a pleasant 69-year-old female with the following: * Recurrent deep vein thrombosis X2. These were unprovoked events, and she has multiple risk factors including sedentary lifestyle, obesity, renal insufficiency. I do have concern for possible hypercoagulable state, given her family history and personal history of clot. She has no children, and the studies would not affect the recommendation for indefinite anticoagulation. Thus, we plan to continue without this testing, and that is very reasonable. Continue Eliquis at the current doses. I am encouraged by her most recent creatinine, which is somewhat improved. Answered all of her many questions today. BILLING Return visit level 4. Total time 30 minutes, counseling time 20. MTDD
[2019-04-02] MEDS ORDERED: APIX5TAB PO (09:52)
[2019-05-13] MEDS ORDERED: LOSA25TA57 PO (09:48)
[2019-05-13] MEDS ORDERED: APIX5TAB PO (09:48)
== END 2019-05-12 14:47 | disposition home or self-care (01) ==
LOC: ONC 09:53
PROVIDERS: ATTEND Internal Medicine
DX: I82.403 Acute embolism and thrombosis of unspecified deep veins of lower extremity, bilateral (principal); E66.9 Obesity, unspecified; N28.9 Disorder of kidney and ureter, unspecified; Z79.01 Long term (current) use of anticoagulants
CPT/HCPCS: 36415; 85025; G0463; 82040; 82247; 82310; 82374; 82435; 82565; 82947; 84075; 84132; 84155; 84295; 84450; 84460; 84520; 99212

== ENCOUNTER → 2019-05-07 | Outpatient (CLI) | payer MEDICARE, OTHER ==
[2018-01-11 09:26] VITALS: BMI 39.8
[2019-05-07 08:48] LABS: PLATELET COUNT, AUTOMATED 274 K/uL (150-450)
== END ==
LOC: LAB 08:33
PROVIDERS: ATTEND Emergency Medicine
DX: E78.5 Hyperlipidemia, unspecified (principal); N25.81 Secondary hyperparathyroidism of renal origin; N18.3 Chronic kidney disease, stage 3 (moderate); I10 Essential (primary) hypertension
CPT/HCPCS: 36415; 82040; 82247; 82310; 82374; 82435; 82465; 82565; 82607; 82947; 83718; 84075; 84132; 84155; 84295; 84443; 84450; 84460; 84478; 84520; 85025

== ENCOUNTER → 2019-05-20 | Outpatient (CLI) | payer MEDICARE, OTHER ==
[2018-01-11 09:26] VITALS: BMI 39.8
== END ==
LOC: AUD 09:50
PROVIDERS: ATTEND Emergency Medicine
DX: H91.93 Unspecified hearing loss, bilateral (principal)
CPT/HCPCS: 92557; 92567